=== PATIENT | female | born 1990 | race Caucasian/White ===

== ENCOUNTER 2024-03-25 09:33 | Emergency (ER) | payer SELFPAY ==
[2024-03-25 09:38] VITALS: BP 127/78
[2024-03-25 10:47] LABS: % Basophils 0.3 % (0-2); % Eosinophils 0.1 % (0-6); % Immature Granulocytes 0.4 % (0-0.5); % Lymphocytes 9.9 % (20.5-51.1); % Monocytes 4.1 % (1.7-9.3); % Neutrophils 85.2 % (42.2-75.2); Absolute Immature Granulocytes 0.1 10^3/uL (0-0.05); Absolute Lymphocytes 1.4 10^3/uL (1.2-3.4); Absolute Monocytes 0.6 10^3/uL (0.1-0.6); Absolute Neutrophils 12.1 10^3/uL (1.4-6.5); Hematocrit 40.2 % (37.0-47.0); Hemoglobin 13.6 g/dL (12.0-16.0); Mean Corp Hgb Conc. 33.8 g/dL (33.0-37.0); Mean Corpuscular Hgb 27.4 pg (27.0-31.0); Nucleated Red Blood Cells % 0 %; Platelet Count 373 10^3/uL (130-400); Red Blood Cell Count 4.96 10^6/uL (4.20-5.40); Red Cell Dist. Width 13.4 % (11.5-14.5); White Blood Cell Count 14.2 10^3/uL (4.8-10.8)
[2024-03-25 10:51] LABS: Urine Albumin Trace (Neg - Trace); Urine Bilirubin Negative (Negative); Urine Character Very Cloudy (Clear); Urine Color Yellow; Urine Glucose Negative (Negative); Urine Ketone 3+ (Negative); Urine Leukocyte Trace (Negative); Urine Nitrite Negative (Negative); Urine Occult Blood Negative (Negative); Urine Specific Gravity 1.025 (<1.030); Urine Urobilinogen Negative (Neg - 1+)
[2024-03-25] MEDS: ZOFRAN 4 MG IV ×2 (10:52→12:44)
[2024-03-25] MEDS: PEPCID 20 MG IV (10:55)
[2024-03-25] MEDS: NSS 1000 IV (10:56)
[2024-03-25 10:59] LABS: ALT (SGPT) 26 U/L (0-35); AST (SGOT) 26 U/L (14-36); Albumin 4.9 g/dl (3.5-5.0); Alkaline Phosphatase 68 U/L (38-126); Blood Urea Nitrogen 11 mg/dl (7-17); Calcium 10.1 mg/dl (8.4-10.2); Carbon Dioxide 23 mmol/L (22-30); Chloride 102 mmol/L (98-107); Glucose 118 mg/dl (70-99); Lipase 115 U/L (23-300); Potassium 3.6 mmol/L (3.5-5.1); Sodium 140 mmol/L (135-145); Total Bilirubin 0.7 mg/dl (0.2-1.3); Total Protein 7.4 g/dl (6.3-8.2); eGFR > 60.00
[2024-03-25 11:01] LABS: HCG, Serum Qualitative Screen Negative
[2024-03-25 11:08] LABS: Urine Bacteria Many (Negative); Urine Red Blood Cell 0-2 /HPF (0-2); Urine Squamous Cell 0-2 /LPF (Few)
[2024-03-25 11:12] LABS: COVID-19 Antigen Negative (Negative)
[2024-03-25 11:15] VITALS: BP 129/76
[2024-03-25] MEDS: BENTYL 20 MG IM (11:23)
--- NOTE | 2024-03-25 12:13 | ED.GENMED ---
History of Present Illness
General
Chief Complaint: Abdominal Symptoms
Source: patient
Exam Limitations: none
Time Seen by Provider: 03/25/24 09:52
Nursing documentation reviewed up to this point in time: agreed with
History of Present Illness
History of Present Illness:
Patient is a 34-year female who presents to the ER complaining nausea vomiting upper abdominal pain since yesterday. She cannot tolerate any fluids. She denies any urinary frequency urgency or dysuria. No other sick contacts at home. She has had
chills.
Past History
Past History
ED Past Medical History: Psychiatric (Takes Zoloft 50 mg daily), Other (PCO PCOS) and Other (Hx substance abuse. Takes Suboxone 2 mg daily)
ED Past Surgical History: Orthopedic and Other (Ankle)
Social History
Tobacco: Vaping
Alcohol: None
Drug: Narcotics
Personal: Single
Living: with family
Employment: Employed ([employer])
Family History
Family History: Other (Noncontributory)
Review of Systems
Review of Systems
Allergies reviewed?: Yes
Other source history: family
All Other Systems: ROS reviewed and negative except as documented in HPI and ROS
Constitutional: Reports chills
EENT: Reports no symptoms
Respiratory: Reports no symptoms; Denies cough
Cardiac: Reports no symptoms
ABD/GI: Reports abdominal pain, nausea and vomiting; Denies diarrhea or constipated
: Reports no symptoms; Denies flank pain, urgency or discharge
Musculoskeletal: Reports no symptoms
Skin: Reports no symptoms; Denies rash
Neurological: Reports no symptoms
Psychiatric: Reports no symptoms
Phy Exam
General Physical Exam
General Presentation: no apparent distress
General age: appears stated age
General Skin: warm and dry
General Habitus: normal
General Mental: alert
General Hydration: appears well hydrated
Cardiovascular Exam
Cardiovascular Exam: regular rate/rhythm, no murmur and normal peripheral pulses
Pulmonary Exam
Pulmonary Exam: lungs clear and no respiratory distress
Gastrointestinal Exam
Gastrointestinal Exam: soft and other (mild epigastric tenderness )
Neurological Exam
Neurological Exam: alert and oriented x3
Jesica Coma Scale
Eye Opening: Spontaneous
Verbal Response: Oriented
Motor Response: Obeys Commands
GCS Total Score: 15
Musculoskeletal Exam
Musculoskeletal Exam: full ROM
Skin Exam
Skin Exam: normal color and warm/dry
Psychiatric Exam
Psychiatric Exam: normal mood/affect
Course
Orders/Labs/Results
Orders:
Orders
03/25/24 10:01
IV Insert/Care/Rem.- Treatment PRN
0.9% Sodium Chloride 1000 ml [Nss] 1,000 ml IV BOLUS
Famotidine [Pepcid] 20 mg IV NOW STA
Ondansetron Injectable [Zofran] 4 mg IV NOW STA
Test Result ONCE
03/25/24 10:20
COVID-19 Antigen Urgent
Source: Nasal Swab
Complete Blood Count/With Diff Urgent
Comprehensive Metabolic Panel Urgent
HCG, Serum Qualitative Screen Urgent
Lipase Urgent
Urinalysis Reflex To Culture Urgent
Date Specimen was Collected: 03/25/24
Time Specimen was Collected: 10:16
Urine Microscopic Reflex Cult Urgent
Influenza A+B Rapid Molecular Urgent
MARIA LUISA Source: Nasal Swab
Specimen Description:
Urine Culture Urgent
MARIA LUISA Source: U
Specimen Description:
Date Specimen was Collected: 03/25/24
Time Specimen was Collected: 10:16
03/25/24 11:08
Dicyclomine HCl [Bentyl] 20 mg IM NOW STA
03/25/24 12:40
Ondansetron Injectable [Zofran] 4 mg IV NOW STA
03/25/24 12:41
US Abdomen Complete/Upper Urgent
Comment:
Reason For Exam: upper abd pain
03/25/24 14:54
Electrocardiogram (*1) Stat
Reason for Study: Other
Other Reason for Exam: chest pain
EKG- Treatment ONCE
Abnormal Lab Results
03/25/24
10:20
WBC 14.2 H 10^3/uL
(4.8-10.8)
Abs Immat Gran (auto) 0.1 H 10^3/uL
(0-0.05)
Absolute Neuts (auto) 12.1 H 10^3/uL
(1.4-6.5)
Neutrophils % 85.2 H %
(42.2-75.2)
Lymphocytes % 9.9 L %
(20.5-51.1)
Glucose 118 H mg/dl
(70-99)
Urine Ketones 3+ A
(Negative)
Leukocyte Esterase Rfl Trace A
(Negative)
Urine Bacteria (Reflex) Many A
(Negative)
03/25/24 10:20
03/25/24 10:20
Vital Signs
Initial and Last Documented VS:
Initial Vital Signs
Temp Pulse Resp BP Pulse Ox
98.3 F 83 20 127/78 97
03/25/24 09:38 03/25/24 09:38 03/25/24 09:38 03/25/24 09:38 03/25/24 09:38
Last Documented Vital Signs
Temp Pulse Resp BP Pulse Ox
98.6 F 77 20 121/74 100
03/25/24 14:49 03/25/24 14:00 03/25/24 14:00 03/25/24 14:00 03/25/24 14:00
MDM/Problems Addressed
Differential Diagnosis Includes:
Text not limited to: viral syndrome dehydration covid
MDM/Problems Addressed:
symptoms are consistent with viral syndrome. Patient with nausea vomiting since yesterday, chills. Patient complains of mild epigastric discomfort. On exam very minimally tender in the epigastric area no left-sided lower or right lower quadrant
tenderness no right upper quadrant tenderness no guarding.
Patient presents afebrile at 98.3. Temperature did increase to 99.1 however on recheck temp is 98.6. White count minimally elevated at 14.2, chemistries normal urine. neg covid/flu. Ultrasound is negative for acute process there is a right renal
5 mm nonshadowing echogenic focus could be artifact versus calculus. No hydro. Patient tolerating sips of nunu eliazar here feels well to go home and is nontoxic. Will DC with Zofran with close outpatient follow family doctor.
Chronic conditions affecting care:
hx of narcotic abuse on subxone daily
*Radiology
Radiology exam reviewed: radiology read reviewed
*Pulse Oximetry
Patient hypoxic: no
*Critical Care Note
Total Time (30-74mins, 75-104mins- exclusive of procedures): Not Applicable
ED Attending Note
-
Portions of this chart may have been created with voice recognition software.� Occasional wrong word or��sound alike� substitutions may have occurred due to the inherent limitations of voice recognition software.
Discharge Plan
Departure
Patient Disposition: Home (Routine Discharge)
Date of Disposition: 03/25/24
Time of Disposition: 14:50
Patient with high blood pressure during this ER visit?: No
Condition: Fair
Covid-19: Not Applicable
Discharge Problem:
Nausea & vomiting
Instructions: Nausea and Vomiting, Adult (DC)
Prescriptions:
New
ondansetron 4 mg tablet,disintegrating
4 mg PO Q8H PRN (Reason: nausea and vomiting) Qty: 10 0RF
No Action
metformin 500 MG tablet
500 mg PO DAILY
sertraline [Zoloft] 100 MG tablet
50 mg PO DAILY
ondansetron HCl 4 MG tablet
4 mg PO TIDPRN PRN (Reason: n/v) Qty: 10 0RF
ondansetron 4 MG tablet,disintegrating
4 mg PO TIDPRN PRN (Reason: nausea/vomiting) Qty: 20 0RF
clonidine HCl 0.1 MG tablet
0.1 mg PO BID Qty: 14 0RF
ciprofloxacin HCl [Cipro] 500 mg tablet
500 mg PO BID Qty: 14 0RF
metronidazole 500 mg tablet
500 mg PO TID Qty: 24 0RF
ondansetron 4 mg tablet,disintegrating
4 mg PO Q8H PRN (Reason: nausea and vomiting) 4 Days Qty: 10 0RF
pantoprazole [Protonix] 20 mg tablet,delayed release (DR/EC)
20 mg PO DAILY Qty: 30 0RF
Referrals:
Alfie Laurent MD [Family Provider] -
Activity Restrictions/Additional Instructions:
As discussed symptoms are consistent with viral syndrome. A prescription for Zofran was sent to pharmacy take as directed. Clear liquids for the next 24 hours followed by bland solid foods. Follow-up with a family doctor the next of days return
if any worsening of symptoms if increased vomiting abdominal pain fever chills or any further concerns.
Interventions
Interventions:
*Risk Screen - Suicide Last Done: 03/25/24 09:35
*General Assessment Last Done: 03/25/24 09:38
*Neglect/Abuse Screening Last Done: 03/25/24 09:38
*Nursing Disposition Last Done: 03/25/24 15:14
WZ-Ekqyik-[id number] Assessment Last Done: 03/25/24 11:35
Discharge Date and Time
Discharge Date/Time: 03/25/24 15:16
Print Language: INDONESIAN
[2024-03-25 12:46] VITALS: BP 123/68
[2024-03-25 14:00] VITALS: BP 121/74
== END 2024-03-25 15:16 | disposition home or self-care (01) ==
LOC: EMR 09:33
PROVIDERS: Nurse Practitioner; EMERGENCY PHYSICIAN Emergency Medicine; FAMILY PHYSICIAN Family Medicine
DX: R10.13 Epigastric pain (principal); R11.2 Nausea with vomiting, unspecified; R68.83 Chills (without fever); Z11.52 Encounter for screening for COVID-19; E28.2 Polycystic ovarian syndrome; K58.9 Irritable bowel syndrome, unspecified; F41.9 Anxiety disorder, unspecified; F32.A Depression, unspecified; F17.290 Nicotine dependence, other tobacco product, uncomplicated; F19.11 Other psychoactive substance abuse, in remission; Z79.899 Other long term (current) drug therapy; Z88.3 Allergy status to other anti-infective agents; Z88.0 Allergy status to penicillin; Z88.8 Allergy status to other drugs, medicaments and biological substances; J45.909 Unspecified asthma, uncomplicated
CPT/HCPCS: 99284; 96374; 96375; 96361; 96372; 96376; 76700; 80053; 81003; 81015; 83690; 84703; 85025; 87086; 87502; 87811; 93005